=== PATIENT | male | born 1965 | race Caucasian/White ===

== ENCOUNTER 2016-08-25 10:52 | Inpatient (IN) | payer MEDICARE, MEDICAID ==
[~2016-08-25 10:52] MED LIST: ADDERALL XR 3030 M1 PO; ATIVAN1 M2 PO; CELEXA40 M2 PO; CYCLOBENZAPRINE10 MG; CYMBALTA30 M1 PO; EFFEXOR75 MG; FLOMAX0.4 M1 PO; HYDROCODONE/APA1 CAP; IBUPROFEN800 M1 PO; LEVAQUIN500 MG; LEVOTHYROXINE200 MC4 PO; NEURONTIN600 M1 PO; NORCO 7.5/325 T1 TAB; OXYCODONE HCL10 M2 PO; PREDNISONE20 MG; SEROQUEL200 M2 PO; SYNTHROID50 MC1 PO; TESTOSTERO200 MG/1 M PO; TRAZODONE HCL50 M1 PO; TRIAMCINOLONE A15 G; ZANAFLEX4 M2 PO; ZYRTEC10 M7 PO; ZYRTEC10 MG
[2016-08-25] MEDS ORDERED: VENTOLIN HFA18 G2 PO (11:44)
[2016-08-25 14:00] LABS: ABG CO2 ARTERIAL 30 mmol/L (21-27); ARTERIAL BLD GAS O2 SATURATION 88 % (95-98); ARTERIAL PO2 65 mmHg (70-100); BICARBONATE 27 mmol/L (21-28); BLOOD GAS BASE EXCESS -3 mM/L (-/+3)
[2016-08-25 14:04] LABS: ARTERIAL BLOOD GAS PCO2 73 mmHg (32-45)
[2016-08-25 14:56] LABS: INR 1.1 INR (0.9-1.1)
[2016-08-25 14:58] LABS: ABG CO2 ARTERIAL 30 mmol/L (21-27); ARTERIAL BLD GAS O2 SATURATION 93 % (95-98); BICARBONATE 27 mmol/L (21-28); BLOOD GAS BASE EXCESS -7 mM/L (-/+3)
[2016-08-25 14:59] LABS: ARTERIAL PO2 86 mmHg (70-100)
[2016-08-25 15:00] LABS: ARTERIAL BLOOD GAS PCO2 92 mmHg (32-45); PH 7.09 Units (7.35-7.45)
[2016-08-25 15:06] LABS: ALB/GLOB RATIO 0.5 (0.8-2.0); ALBUMIN 2.4 g/dl (3.5-5.0); ALKALINE PHOSPHATASE 114 U/L (33-138); ALT/SGPT 48 U/L (12-78); ANION GAP 12 mmol/L (0-20); AST/SGOT 26 U/L (10-40); BILIRUBIN,TOTAL 0.2 mg/dl (0.0-1.5); BLOOD UREA NITROGEN 17 mg/dl (6-24); CALCIUM 8.2 mg/dl (8.5-10.5); CARBON DIOXIDE-VENOUS 27 mmol/L (22-32); CHLORIDE 105 mmol/l (96-110); CREATININE 1.04 mg/dl (0.60-1.30); GLUCOSE 107 mg/dL (70-110); POTASSIUM 5.2 mmol/L (3.7-5.1); SODIUM 139 mmol/L (135-145); eGFR VALUE FOR BLACK >90 mL/Min
[2016-08-25 15:11] LABS: BASO % 0.1 % (0-2); EOS % 0.2 % (0-7); EOSINOPHIL ABSOLUTE COUNT 0.1 tho/cmm (0.0-0.7); HCT-HEMATOCRIT 45.4 % (36.0-53.5); HGB-HEMOGLOBIN 15.3 gm/dl (13.5-17.0); IMMATURE GRANULOCYTES ABSOLUTE 0.19 tho/cmm (0-0.03); IMMATURE GRANULOCYTES PERCENT 0.7 % (0-0.3); LYMPH % 5.4 % (20-45); LYMPH ABSOLUTE COUNT 1.5 tho/cmm (0.8-4.5); MCH (MEAN CORPUSCULAR HGB) 31.5 pg (28.0-32.0); MCHC MEAN CORPUSCULAR HGB CONC 33.7 % (32.0-36.0); MCV (MEAN CELL VOLUME) 93.6 fl (82.0-96.0); MEAN PLATELET VOLUME 9.2 cmc (9.4-12.4); MONO % 6.7 % (0-12); MONOCYTE ABSOLUTE COUNT 1.9 tho/cmm (0.0-1.2); NEUTROPHIL ABSOLUTE COUNT 24.8 tho/cmm (1.6-8.0); NEUTROPHIL-AUTOMATED 24.8 tho/cmm (1.6-8.0); NEUTROPHILS % 86.9 % (40-80); PLATELET COUNT 401 tho/cmm (150-450); RED BLOOD COUNT 4.85 mil/cmm (4.40-5.70); RED CELL DISTRIBUTION WIDTH 13.9 % (12.4-16.4); WHITE BLOOD COUNT 28.6 tho/cmm (4.0-10.0)
[2016-08-25 15:23] LABS: PROCALCITONIN 3.74 ng/ml (0.05-0.09)
[2016-08-25 16:50] LABS: ABG CO2 ARTERIAL 26 mmol/L (21-27); ARTERIAL BLD GAS O2 SATURATION 95 % (95-98); ARTERIAL BLOOD GAS PCO2 63 mmHg (32-45); ARTERIAL PO2 89 mmHg (70-100); BICARBONATE 24 mmol/L (21-28); BLOOD GAS BASE EXCESS -5 mM/L (-/+3); PH 7.21 Units (7.35-7.45)
--- NOTE | 2016-08-25 20:11 | NUR ---
NOTIFIED DR PASCAL THAT HE WAS CONSULTED ON 386 WHEN HE WAS ON THE FLOOR AFTER SURGER WITH ANOTHER PATIENT AT 1845. DR PASCAL STATED "NO NOT UNTIL TOMORROW"
[2016-08-25 21:31] LABS: ABG CO2 ARTERIAL 26 mmol/L (21-27); ARTERIAL BLD GAS O2 SATURATION 96 % (95-98); ARTERIAL BLOOD GAS PCO2 53 mmHg (32-45); ARTERIAL PO2 83 mmHg (70-100); BICARBONATE 25 mmol/L (21-28); BLOOD GAS BASE EXCESS -2 mM/L (-/+3); PH 7.29 Units (7.35-7.45)
[2016-08-26 05:00] LABS: ABG CO2 ARTERIAL 26 mmol/L (21-27); ARTERIAL BLD GAS O2 SATURATION 95 % (95-98); ARTERIAL BLOOD GAS PCO2 45 mmHg (32-45); ARTERIAL PO2 77 mmHg (70-100); BICARBONATE 25 mmol/L (21-28); BLOOD GAS BASE EXCESS -1 mM/L (-/+3); PH 7.36 Units (7.35-7.45)
[2016-08-26 20:32] LABS: ABG CO2 ARTERIAL 20 mmol/L (21-27); ARTERIAL BLD GAS O2 SATURATION 98 % (95-98); ARTERIAL BLOOD GAS PCO2 47 mmHg (32-45); ARTERIAL PO2 146 mmHg (70-100); BICARBONATE 19 mmol/L (21-28); BLOOD GAS BASE EXCESS -8 mM/L (-/+3); PH 7.22 Units (7.35-7.45)
[2016-08-26 23:22] LABS: ABG CO2 ARTERIAL 24 mmol/L (21-27); ARTERIAL BLD GAS O2 SATURATION 99 % (95-98); ARTERIAL BLOOD GAS PCO2 37 mmHg (32-45); ARTERIAL PO2 167 mmHg (70-100); BICARBONATE 22 mmol/L (21-28); BLOOD GAS BASE EXCESS -2 mM/L (-/+3); PH 7.39 Units (7.35-7.45)
[2016-08-27 05:35] LABS: ABG CO2 ARTERIAL 22 mmol/L (21-27); ARTERIAL BLD GAS O2 SATURATION 97 % (95-98); ARTERIAL BLOOD GAS PCO2 37 mmHg (32-45); BICARBONATE 21 mmol/L (21-28); BLOOD GAS BASE EXCESS -3 mM/L (-/+3); PH 7.38 Units (7.35-7.45)
[2016-08-27 05:36] LABS: ARTERIAL PO2 84 mmHg (70-100)
[2016-08-27 05:56] LABS: BASO % 0.1 % (0-2); EOS % 0.2 % (0-7); HCT-HEMATOCRIT 39.2 % (36.0-53.5); HGB-HEMOGLOBIN 13.2 gm/dl (13.5-17.0); IMMATURE GRANULOCYTES PERCENT 0.5 % (0-0.3); LYMPH % 5.8 % (20-45); LYMPH ABSOLUTE COUNT 1.2 tho/cmm (0.8-4.5); MCH (MEAN CORPUSCULAR HGB) 30.7 pg (28.0-32.0); MCHC MEAN CORPUSCULAR HGB CONC 33.7 % (32.0-36.0); MCV (MEAN CELL VOLUME) 91.2 fl (82.0-96.0); MEAN PLATELET VOLUME 9.2 cmc (9.4-12.4); MONO % 6.4 % (0-12); MONOCYTE ABSOLUTE COUNT 1.3 tho/cmm (0.0-1.2); NEUTROPHIL ABSOLUTE COUNT 17.3 tho/cmm (1.6-8.0); NEUTROPHIL-AUTOMATED 17.3 tho/cmm (1.6-8.0); PLATELET COUNT 348 tho/cmm (150-450); RED CELL DISTRIBUTION WIDTH 14.2 % (12.4-16.4); WHITE BLOOD COUNT 19.9 tho/cmm (4.0-10.0)
[2016-08-27 06:11] LABS: ALB/GLOB RATIO 0.4 (0.8-2.0); ALBUMIN 1.8 g/dl (3.5-5.0); ALKALINE PHOSPHATASE 85 U/L (33-138); ALT/SGPT 25 U/L (12-78); BILIRUBIN,TOTAL 0.3 mg/dl (0.0-1.5); BLOOD UREA NITROGEN 16 mg/dl (6-24); CALCIUM 7.6 mg/dl (8.5-10.5); CARBON DIOXIDE-VENOUS 24 mmol/L (22-32); CHLORIDE 107 mmol/l (96-110); CREATININE 0.72 mg/dl (0.60-1.30); GLUCOSE 158 mg/dL (70-110); SODIUM 140 mmol/L (135-145); eGFR VALUE FOR BLACK >90 mL/Min
[2016-08-27 06:14] LABS: ANION GAP 13 mmol/L (0-20); AST/SGOT 18 U/L (10-40)
[2016-08-27 06:15] LABS: POTASSIUM 4.3 mmol/L (3.7-5.1)
[2016-08-28 05:06] LABS: BASO % 0.2 % (0-2); EOS % 2.4 % (0-7); EOSINOPHIL ABSOLUTE COUNT 0.3 tho/cmm (0.0-0.7); HCT-HEMATOCRIT 37.7 % (36.0-53.5); HGB-HEMOGLOBIN 12.8 gm/dl (13.5-17.0); IMMATURE GRANULOCYTES ABSOLUTE 0.27 tho/cmm (0-0.03); IMMATURE GRANULOCYTES PERCENT 2.1 % (0-0.3); LYMPH % 11.8 % (20-45); LYMPH ABSOLUTE COUNT 1.5 tho/cmm (0.8-4.5); MCH (MEAN CORPUSCULAR HGB) 30.9 pg (28.0-32.0); MCV (MEAN CELL VOLUME) 91.1 fl (82.0-96.0); MEAN PLATELET VOLUME 9.4 cmc (9.4-12.4); MONO % 9.1 % (0-12); MONOCYTE ABSOLUTE COUNT 1.2 tho/cmm (0.0-1.2); NEUTROPHIL ABSOLUTE COUNT 9.5 tho/cmm (1.6-8.0); NEUTROPHIL-AUTOMATED 9.5 tho/cmm (1.6-8.0); NEUTROPHILS % 74.4 % (40-80); PLATELET COUNT 347 tho/cmm (150-450); RED BLOOD COUNT 4.14 mil/cmm (4.40-5.70); RED CELL DISTRIBUTION WIDTH 14.3 % (12.4-16.4); WHITE BLOOD COUNT 12.8 tho/cmm (4.0-10.0)
[2016-08-28 05:16] LABS: ALB/GLOB RATIO 0.4 (0.8-2.0); ALBUMIN 1.6 g/dl (3.5-5.0); ALKALINE PHOSPHATASE 100 U/L (33-138); ALT/SGPT 28 U/L (12-78); ANION GAP 13 mmol/L (0-20); AST/SGOT 39 U/L (10-40); BILIRUBIN,TOTAL 0.3 mg/dl (0.0-1.5); BLOOD UREA NITROGEN 17 mg/dl (6-24); CALCIUM 7.6 mg/dl (8.5-10.5); CARBON DIOXIDE-VENOUS 24 mmol/L (22-32); CHLORIDE 107 mmol/l (96-110); CREATININE 0.72 mg/dl (0.60-1.30); GLUCOSE 129 mg/dL (70-110); MAGNESIUM 2.3 mg/dl (1.8-2.6); POTASSIUM 3.5 mmol/L (3.7-5.1); SODIUM 140 mmol/L (135-145); eGFR VALUE FOR BLACK >90 mL/Min
[2016-08-28 16:21] LABS: ABG CO2 ARTERIAL 25 mmol/L (21-27); ARTERIAL BLD GAS O2 SATURATION 96 % (95-98); ARTERIAL BLOOD GAS PCO2 36 mmHg (32-45); ARTERIAL PO2 84 mmHg (70-100); BICARBONATE 24 mmol/L (21-28); BLOOD GAS BASE EXCESS 1 mM/L (-/+3); PH 7.44 Units (7.35-7.45)
[2016-08-29 04:17] LABS: ABG CO2 ARTERIAL 25 mmol/L (21-27); ARTERIAL BLD GAS O2 SATURATION 95 % (95-98); ARTERIAL BLOOD GAS PCO2 36 mmHg (32-45); BICARBONATE 23 mmol/L (21-28); BLOOD GAS BASE EXCESS 0 mM/L (-/+3); PH 7.43 Units (7.35-7.45)
[2016-08-29 04:18] LABS: ARTERIAL PO2 73 mmHg (70-100)
[2016-08-29 04:39] LABS: BASO % 0.4 % (0-2); BASO ABSOLUTE COUNT 0.1 tho/cmm (0.0-0.2); EOS % 1.7 % (0-7); EOSINOPHIL ABSOLUTE COUNT 0.2 tho/cmm (0.0-0.7); HCT-HEMATOCRIT 38.6 % (36.0-53.5); HGB-HEMOGLOBIN 13.1 gm/dl (13.5-17.0); IMMATURE GRANULOCYTES ABSOLUTE 0.57 tho/cmm (0-0.03); IMMATURE GRANULOCYTES PERCENT 4.3 % (0-0.3); LYMPH % 9.6 % (20-45); LYMPH ABSOLUTE COUNT 1.3 tho/cmm (0.8-4.5); MCHC MEAN CORPUSCULAR HGB CONC 33.9 % (32.0-36.0); MCV (MEAN CELL VOLUME) 91.3 fl (82.0-96.0); MEAN PLATELET VOLUME 9.5 cmc (9.4-12.4); MONOCYTE ABSOLUTE COUNT 1.3 tho/cmm (0.0-1.2); NEUTROPHIL ABSOLUTE COUNT 9.9 tho/cmm (1.6-8.0); NEUTROPHIL-AUTOMATED 9.9 tho/cmm (1.6-8.0); PLATELET COUNT 331 tho/cmm (150-450); RED BLOOD COUNT 4.23 mil/cmm (4.40-5.70); RED CELL DISTRIBUTION WIDTH 14.2 % (12.4-16.4); WHITE BLOOD COUNT 13.4 tho/cmm (4.0-10.0)
[2016-08-29 05:12] LABS: ALB/GLOB RATIO 0.3 (0.8-2.0); ALBUMIN 1.4 g/dl (3.5-5.0); ALKALINE PHOSPHATASE 78 U/L (33-138); ALT/SGPT 30 U/L (12-78); ANION GAP 12 mmol/L (0-20); AST/SGOT 38 U/L (10-40); BILIRUBIN,TOTAL 0.4 mg/dl (0.0-1.5); BLOOD UREA NITROGEN 14 mg/dl (6-24); CALCIUM 7.4 mg/dl (8.5-10.5); CARBON DIOXIDE-VENOUS 24 mmol/L (22-32); CHLORIDE 105 mmol/l (96-110); GLUCOSE 106 mg/dL (70-110); MAGNESIUM 1.9 mg/dl (1.8-2.6); PHOSPHOROUS 2.2 mg/dl (2.5-4.9); POTASSIUM 3.7 mmol/L (3.7-5.1); SODIUM 137 mmol/L (135-145); eGFR VALUE FOR BLACK >90 mL/Min
[2016-08-30 04:54] LABS: ALB/GLOB RATIO 0.4 (0.8-2.0); ALBUMIN 1.7 g/dl (3.5-5.0); ALKALINE PHOSPHATASE 81 U/L (33-138); ALT/SGPT 31 U/L (12-78); ANION GAP 10 mmol/L (0-20); AST/SGOT 34 U/L (10-40); BILIRUBIN,TOTAL 0.4 mg/dl (0.0-1.5); BLOOD UREA NITROGEN 10 mg/dl (6-24); CALCIUM 7.8 mg/dl (8.5-10.5); CARBON DIOXIDE-VENOUS 28 mmol/L (22-32); CHLORIDE 103 mmol/l (96-110); CREATININE 0.53 mg/dl (0.60-1.30); GLUCOSE 101 mg/dL (70-110); POTASSIUM 3.3 mmol/L (3.7-5.1); SODIUM 138 mmol/L (135-145); eGFR VALUE FOR BLACK >90 mL/Min
[2016-08-30 04:56] LABS: ABG CO2 ARTERIAL 26 mmol/L (21-27); ARTERIAL BLD GAS O2 SATURATION 95 % (95-98); ARTERIAL BLOOD GAS PCO2 36 mmHg (32-45); ARTERIAL PO2 76 mmHg (70-100); BICARBONATE 25 mmol/L (21-28); BLOOD GAS BASE EXCESS 2 mM/L (-/+3); PH 7.45 Units (7.35-7.45)
[2016-08-30 05:03] LABS: HCT-HEMATOCRIT 42.5 % (36.0-53.5); HGB-HEMOGLOBIN 14.2 gm/dl (13.5-17.0); MCH (MEAN CORPUSCULAR HGB) 30.3 pg (28.0-32.0); MCHC MEAN CORPUSCULAR HGB CONC 33.4 % (32.0-36.0); MCV (MEAN CELL VOLUME) 90.6 fl (82.0-96.0); MEAN PLATELET VOLUME 9.5 cmc (9.4-12.4); NEUTROPHIL-AUTOMATED 9.7 tho/cmm (1.6-8.0); PLATELET COUNT 408 tho/cmm (150-450); RED BLOOD COUNT 4.69 mil/cmm (4.40-5.70); RED CELL DISTRIBUTION WIDTH 14.1 % (12.4-16.4)
[2016-08-30 06:06] LABS: PROCALCITONIN 0.55 ng/ml (0.05-0.09)
[2016-08-30 07:52] LABS: BAND % 19 % (0-20); BAND ABSOLUTE COUNT 2.7 tho/cmm (0-2.0); BASOPHIL % 1 % (0-2); BASOPHIL ABSOLUTE COUNT 0.1 tho/cmm (0.0-0.2); EOSINOPHIL % 1 % (0-7)
[2016-09-01 13:57] LABS: BASO % 0.5 % (0-2); BASO ABSOLUTE COUNT 0.1 tho/cmm (0.0-0.2); EOS % 1.8 % (0-7); EOSINOPHIL ABSOLUTE COUNT 0.3 tho/cmm (0.0-0.7); HCT-HEMATOCRIT 42.7 % (36.0-53.5); HGB-HEMOGLOBIN 14.8 gm/dl (13.5-17.0); IMMATURE GRANULOCYTES ABSOLUTE 0.59 tho/cmm (0-0.03); IMMATURE GRANULOCYTES PERCENT 3.6 % (0-0.3); LYMPH % 11.2 % (20-45); LYMPH ABSOLUTE COUNT 1.8 tho/cmm (0.8-4.5); MCH (MEAN CORPUSCULAR HGB) 31.1 pg (28.0-32.0); MCHC MEAN CORPUSCULAR HGB CONC 34.7 % (32.0-36.0); MCV (MEAN CELL VOLUME) 89.7 fl (82.0-96.0); MEAN PLATELET VOLUME 9.1 cmc (9.4-12.4); MONO % 5.6 % (0-12); MONOCYTE ABSOLUTE COUNT 0.9 tho/cmm (0.0-1.2); NEUTROPHIL ABSOLUTE COUNT 12.7 tho/cmm (1.6-8.0); NEUTROPHIL-AUTOMATED 12.7 tho/cmm (1.6-8.0); NEUTROPHILS % 77.3 % (40-80); PLATELET COUNT 458 tho/cmm (150-450); RED BLOOD COUNT 4.76 mil/cmm (4.40-5.70); RED CELL DISTRIBUTION WIDTH 13.9 % (12.4-16.4); WHITE BLOOD COUNT 16.4 tho/cmm (4.0-10.0)
[2016-09-01 14:06] LABS: ANION GAP 14 mmol/L (0-20); BLOOD UREA NITROGEN 9 mg/dl (6-24); CARBON DIOXIDE-VENOUS 25 mmol/L (22-32); CHLORIDE 104 mmol/l (96-110); CREATININE 0.78 mg/dl (0.60-1.30); GLUCOSE 137 mg/dL (70-110); POTASSIUM 3.6 mmol/L (3.7-5.1); SODIUM 139 mmol/L (135-145); eGFR VALUE FOR BLACK >90 mL/Min
[2016-09-02] MEDS ORDERED: CLEOCIN HCL300 M1 PO (15:07)
[2016-09-02] MEDS ORDERED: HYDROCODON-ACE1 EA16 PO (15:11)
[2016-11-16] MEDS ORDERED: CYMBALTA60 M1 PO (11:00)
[2016-11-16] MEDS ORDERED: AMITRIPTYLINE H50 M1 PO (11:06)
[2016-11-16] MEDS ORDERED: PROAIR HFA8.5 GM INH (11:06)
[2016-11-16] MEDS ORDERED: OXYCONTIN10 M2 PO (11:06)
[2016-11-16] MEDS ORDERED: HYDROCODON-ACE1 EA16 PO (11:06)
[2016-11-16] MEDS ORDERED: ATIVAN1 M2 PO (11:07)
[2016-11-25] MEDS ORDERED: CEFTRIAXON2000 MG/VI IV (08:39)
[2016-11-25] MEDS ORDERED: ATIVAN2 MG/1 ML IV (08:47)
[2016-11-25] MEDS ORDERED: DULERA 200 MCG/13 G1 INH (08:48)
[2016-11-25] MEDS ORDERED: COMBIVENT RESPIM4 G1 INH (08:48)
[2016-11-25] MEDS ORDERED: ZANAFLEX4 M2 PO (08:48)
[2016-11-25] MEDS ORDERED: NICODERM CQ1 EAC2 TD (08:51)
[2016-11-25] MEDS ORDERED: OXYCONTIN10 M2 PO (08:52)
[2016-11-25] MEDS ORDERED: PERCOCET 5-3251 EACH PO (08:53)
[2016-11-25] MEDS ORDERED: TYLENOL325 M2 PO (08:54)
[2016-11-25] MEDS ORDERED: NEURONTIN400 M1 PO (08:55)
[2016-11-25] MEDS ORDERED: MUCINEX600 M1 PO (08:56)
[2016-11-25] MEDS ORDERED: SYNTHROID25 MC1 PO (08:59)
[2016-11-25] MEDS ORDERED: IRON325 M3 PO (09:02)
== END 2016-09-02 15:50 | disposition home health service (06) | DRG 853 ==
LOC: 5WD 10:52 → PCUB 11:18 → CCU 16:09 → ORW 08-26 18:34 → CCU 08-26 20:02 → PCUB 08-30 14:47
PROVIDERS: Family Medicine; Internal Medicine; Internal Medicine Critical Care Medicine; ADMIT Family Medicine
PROC: 02HV33Z Insertion of Infusion Device into Superior Vena Cava, Percutaneous Approach (ICD-10-PCS; 2016-08-25)
PROC: 5A09357 Assistance with Respiratory Ventilation, Less than 24 Consecutive Hours, Continuous Positive Airway Pressure (ICD-10-PCS; 2016-08-25)
PROC: 0BDN4ZZ Extraction of Right Pleura, Percutaneous Endoscopic Approach (ICD-10-PCS; principal; 2016-08-27)
PROC: 0BH17EZ Insertion of Endotracheal Airway into Trachea, Via Natural or Artificial Opening (ICD-10-PCS; 2016-08-27)
PROC: 5A1945Z Respiratory Ventilation, 24-96 Consecutive Hours (ICD-10-PCS; 2016-08-27)
DX: A41.9 Sepsis, unspecified organism (principal); J18.9 Pneumonia, unspecified organism; J96.01 Acute respiratory failure with hypoxia; J86.9 Pyothorax without fistula; G93.40 Encephalopathy, unspecified; J96.22 Acute and chronic respiratory failure with hypercapnia; F11.20 Opioid dependence, uncomplicated; R04.2 Hemoptysis; F17.213 Nicotine dependence, cigarettes, with withdrawal; F90.9 Attention-deficit hyperactivity disorder, unspecified type; N40.0 Benign prostatic hyperplasia without lower urinary tract symptoms; N52.9 Male erectile dysfunction, unspecified; G47.33 Obstructive sleep apnea (adult) (pediatric); E03.9 Hypothyroidism, unspecified; G89.29 Other chronic pain; M21.379 Foot drop, unspecified foot; Z88.1 Allergy status to other antibiotic agents; Z88.0 Allergy status to penicillin; Z88.2 Allergy status to sulfonamides; Z88.8 Allergy status to other drugs, medicaments and biological substances; F17.210 Nicotine dependence, cigarettes, uncomplicated; F32.9 Major depressive disorder, single episode, unspecified; F41.9 Anxiety disorder, unspecified; R65.20 Severe sepsis without septic shock; F12.90 Cannabis use, unspecified, uncomplicated; E29.1 Testicular hypofunction; E66.9 Obesity, unspecified; Z86.14 Personal history of Methicillin resistant Staphylococcus aureus infection; Z68.35 Body mass index [BMI] 35.0-35.9, adult; D64.9 Anemia, unspecified; E87.8 Other disorders of electrolyte and fluid balance, not elsewhere classified; Z53.9 Procedure and treatment not carried out, unspecified reason
CPT/HCPCS: C1751; C9113; J1650; J1940; J1956; J2250; J2704; J3010; J3370; J7030; J7050; P9045

== ENCOUNTER 2016-09-12 17:31 | Inpatient (IN) | payer MEDICARE, MEDICAID ==
[~2016-09-12 17:31] MED LIST changes: +CLEOCIN HCL300 M1 PO; +HYDROCODON-ACE1 EA16 PO; +VENTOLIN HFA18 G2 PO
[2016-09-12 17:57] LABS: BASO % 0.1 % (0-2); EOS % 1.2 % (0-7); EOSINOPHIL ABSOLUTE COUNT 0.2 tho/cmm (0.0-0.7); HCT-HEMATOCRIT 35.1 % (36.0-53.5); HGB-HEMOGLOBIN 11.6 gm/dl (13.5-17.0); IMMATURE GRANULOCYTES ABSOLUTE 0.18 tho/cmm (0-0.03); IMMATURE GRANULOCYTES PERCENT 1.1 % (0-0.3); LYMPH % 7.9 % (20-45); LYMPH ABSOLUTE COUNT 1.3 tho/cmm (0.8-4.5); MCH (MEAN CORPUSCULAR HGB) 29.4 pg (28.0-32.0); MCV (MEAN CELL VOLUME) 89.1 fl (82.0-96.0); MEAN PLATELET VOLUME 9.1 cmc (9.4-12.4); MONO % 5.5 % (0-12); MONOCYTE ABSOLUTE COUNT 0.9 tho/cmm (0.0-1.2); NEUTROPHIL ABSOLUTE COUNT 13.9 tho/cmm (1.6-8.0); NEUTROPHIL-AUTOMATED 13.9 tho/cmm (1.6-8.0); NEUTROPHILS % 84.2 % (40-80); PLATELET COUNT 427 tho/cmm (150-450); RED BLOOD COUNT 3.94 mil/cmm (4.40-5.70); RED CELL DISTRIBUTION WIDTH 14.7 % (12.4-16.4); WHITE BLOOD COUNT 16.5 tho/cmm (4.0-10.0)
[2016-09-12 18:01] LABS: INR 1.1 INR (0.9-1.1)
[2016-09-12 18:13] LABS: ALB/GLOB RATIO 0.3 (0.8-2.0); ALBUMIN 1.7 g/dl (3.5-5.0); ALKALINE PHOSPHATASE 125 U/L (33-138); ALT/SGPT 26 U/L (12-78); ANION GAP 12 mmol/L (0-20); AST/SGOT 27 U/L (10-40); BILIRUBIN,TOTAL 0.2 mg/dl (0.0-1.5); BLOOD UREA NITROGEN 11 mg/dl (6-24); CALCIUM 8.6 mg/dl (8.5-10.5); CARBON DIOXIDE-VENOUS 24 mmol/L (22-32); CHLORIDE 101 mmol/l (96-110); GLUCOSE 149 mg/dL (70-110); POTASSIUM 4.1 mmol/L (3.7-5.1); SODIUM 133 mmol/L (135-145); eGFR VALUE FOR BLACK >90 mL/Min
[2016-09-12 18:36] LABS: URINE BILIRUBIN NEGATIVE (NEG); URINE BLOOD SMALL (NEG); URINE GLUCOSE (UA) NEGATIVE (NEG); URINE KETONE NEGATIVE (NEG); URINE LEUKOCYTE ESTERASE POSITIVE (NEG); URINE NITRITE NEGATIVE (NEG); URINE PROTEIN MODERATE (NEG); URINE SPECIFIC GRAVITY 1.015 (1.003-1.030)
[2016-09-12 18:38] LABS: URINE APPEARANCE CLEAR; URINE COLOR DARK YELLOW
[2016-09-12 18:42] LABS: URINE MUCUS 1+
[2016-09-12 18:43] LABS: URINE RBC 0 /[HPF] (0-5); URINE WBC 0-2 /[HPF] (0-5)
[2016-09-12 20:05] LABS: ABG CO2 ARTERIAL 26 mmol/L (21-27); ARTERIAL BLD GAS O2 SATURATION 92 % (95-98); ARTERIAL BLOOD GAS PCO2 44 mmHg (32-45); ARTERIAL PO2 72 mmHg (70-100); BICARBONATE 24 mmol/L (21-28); BLOOD GAS BASE EXCESS -1 mM/L (-/+3); PH 7.36 Units (7.35-7.45)
[2016-09-12 21:36] LABS: ALCOHOL (ETOH) <10 mg/dl (<10); MAGNESIUM 1.7 mg/dl (1.8-2.6); PHOSPHOROUS 3.6 mg/dl (2.5-4.9)
[2016-09-12 21:40] LABS: TSH-THYROID STIMULATING HORM. 3.22 uIU/ml (0.40-3.80)
[2016-09-13] LABS: PROCALCITONIN 5.41 ng/ml (0.05-0.09)
[2016-09-13 03:27] LABS: ABG CO2 ARTERIAL 25 mmol/L (21-27); ARTERIAL BLD GAS O2 SATURATION 94 % (95-98); ARTERIAL BLOOD GAS PCO2 40 mmHg (32-45); ARTERIAL PO2 73 mmHg (70-100); BICARBONATE 24 mmol/L (21-28); BLOOD GAS BASE EXCESS -1 mM/L (-/+3); PH 7.39 Units (7.35-7.45)
[2016-09-13 05:25] LABS: BASO % 0.1 % (0-2); EOS % 1.1 % (0-7); EOSINOPHIL ABSOLUTE COUNT 0.2 tho/cmm (0.0-0.7); HCT-HEMATOCRIT 34.7 % (36.0-53.5); HGB-HEMOGLOBIN 11.4 gm/dl (13.5-17.0); IMMATURE GRANULOCYTES PERCENT 1.2 % (0-0.3); LYMPH % 9.6 % (20-45); LYMPH ABSOLUTE COUNT 1.7 tho/cmm (0.8-4.5); MCH (MEAN CORPUSCULAR HGB) 29.3 pg (28.0-32.0); MCHC MEAN CORPUSCULAR HGB CONC 32.9 % (32.0-36.0); MCV (MEAN CELL VOLUME) 89.2 fl (82.0-96.0); MEAN PLATELET VOLUME 9.1 cmc (9.4-12.4); MONO % 5.5 % (0-12); NEUTROPHIL ABSOLUTE COUNT 14.3 tho/cmm (1.6-8.0); NEUTROPHIL-AUTOMATED 14.3 tho/cmm (1.6-8.0); NEUTROPHILS % 82.5 % (40-80); PLATELET COUNT 394 tho/cmm (150-450); RED BLOOD COUNT 3.89 mil/cmm (4.40-5.70); RED CELL DISTRIBUTION WIDTH 15.1 % (12.4-16.4); WHITE BLOOD COUNT 17.4 tho/cmm (4.0-10.0)
[2016-09-13 05:41] LABS: ANION GAP 12 mmol/L (0-20); BLOOD UREA NITROGEN 7 mg/dl (6-24); CALCIUM 7.8 mg/dl (8.5-10.5); CARBON DIOXIDE-VENOUS 25 mmol/L (22-32); CHLORIDE 100 mmol/l (96-110); CREATININE 0.71 mg/dl (0.60-1.30); GLUCOSE 110 mg/dL (70-110); POTASSIUM 3.9 mmol/L (3.7-5.1); SODIUM 133 mmol/L (135-145); eGFR VALUE FOR BLACK >90 mL/Min
[2016-09-13 05:44] LABS: C-REACTIVE PROTEIN 27.7 mg/dl (0-0.9)
[2016-09-13] MEDS ORDERED: CYMBALTA30 M1 PO (14:00)
[2016-09-13] MEDS ORDERED: OXYCODONE HCL10 M2 PO (14:04)
[2016-09-13] MEDS ORDERED: NEURONTIN600 M1 PO (14:05)
[2016-09-13] MEDS ORDERED: IBUPROFEN800 M1 PO (14:05)
[2016-09-13] MEDS ORDERED: OXYCONTIN40 M2 PO (14:05)
[2016-09-14 15:24] LABS: HCT-HEMATOCRIT 35.2 % (36.0-53.5); HGB-HEMOGLOBIN 11.6 gm/dl (13.5-17.0); MCV (MEAN CELL VOLUME) 89.1 fl (82.0-96.0); RED CELL DISTRIBUTION WIDTH 15.1 % (12.4-16.4)
[2016-09-15 05:11] LABS: BASO % 0.3 % (0-2); EOS % 1.1 % (0-7); EOSINOPHIL ABSOLUTE COUNT 0.1 tho/cmm (0.0-0.7); HCT-HEMATOCRIT 35.3 % (36.0-53.5); HGB-HEMOGLOBIN 11.5 gm/dl (13.5-17.0); IMMATURE GRANULOCYTES PERCENT 3.5 % (0-0.3); LYMPH % 13.1 % (20-45); LYMPH ABSOLUTE COUNT 1.5 tho/cmm (0.8-4.5); MCH (MEAN CORPUSCULAR HGB) 28.9 pg (28.0-32.0); MCHC MEAN CORPUSCULAR HGB CONC 32.6 % (32.0-36.0); MCV (MEAN CELL VOLUME) 88.7 fl (82.0-96.0); MONO % 7.1 % (0-12); MONOCYTE ABSOLUTE COUNT 0.8 tho/cmm (0.0-1.2); NEUTROPHIL ABSOLUTE COUNT 8.5 tho/cmm (1.6-8.0); NEUTROPHIL-AUTOMATED 8.5 tho/cmm (1.6-8.0); NEUTROPHILS % 74.9 % (40-80); PLATELET COUNT 360 tho/cmm (150-450); RED BLOOD COUNT 3.98 mil/cmm (4.40-5.70); RED CELL DISTRIBUTION WIDTH 15.1 % (12.4-16.4); WHITE BLOOD COUNT 11.4 tho/cmm (4.0-10.0)
[2016-09-15 05:22] LABS: ANION GAP 9 mmol/L (0-20); BLOOD UREA NITROGEN 6 mg/dl (6-24); CALCIUM 7.8 mg/dl (8.5-10.5); CARBON DIOXIDE-VENOUS 28 mmol/L (22-32); CHLORIDE 102 mmol/l (96-110); CREATININE 0.59 mg/dl (0.60-1.30); GLUCOSE 101 mg/dL (70-110); POTASSIUM 4.1 mmol/L (3.7-5.1); SODIUM 135 mmol/L (135-145); eGFR VALUE FOR BLACK >90 mL/Min
[2016-09-16 05:51] LABS: HCT-HEMATOCRIT 33.6 % (36.0-53.5); HGB-HEMOGLOBIN 11.1 gm/dl (13.5-17.0); MCH (MEAN CORPUSCULAR HGB) 28.9 pg (28.0-32.0); MCV (MEAN CELL VOLUME) 87.5 fl (82.0-96.0); NEUTROPHIL-AUTOMATED 7.8 tho/cmm (1.6-8.0); PLATELET COUNT 352 tho/cmm (150-450); RED BLOOD COUNT 3.84 mil/cmm (4.40-5.70); RED CELL DISTRIBUTION WIDTH 15.1 % (12.4-16.4); WHITE BLOOD COUNT 11.3 tho/cmm (4.0-10.0)
[2016-09-16 07:35] LABS: BAND % 26 % (0-20); BAND ABSOLUTE COUNT 2.9 tho/cmm (0-2.0); EOSINOPHIL % 1 % (0-7); WBC MORPHOLOGY TOXIC GRANULATION
[2016-09-17 08:13] LABS: HCT-HEMATOCRIT 34.6 % (36.0-53.5); HGB-HEMOGLOBIN 11.3 gm/dl (13.5-17.0); MCH (MEAN CORPUSCULAR HGB) 28.8 pg (28.0-32.0); MCHC MEAN CORPUSCULAR HGB CONC 32.7 % (32.0-36.0); PLATELET COUNT 380 tho/cmm (150-450); RED BLOOD COUNT 3.93 mil/cmm (4.40-5.70); WHITE BLOOD COUNT 11.1 tho/cmm (4.0-10.0)
[2016-09-17 08:24] LABS: ALBUMIN 1.4 g/dl (3.5-5.0); ANION GAP 11 mmol/L (0-20); BLOOD UREA NITROGEN 8 mg/dl (6-24); C-REACTIVE PROTEIN 7.7 mg/dl (0-0.9); CALCIUM 7.6 mg/dl (8.5-10.5); CARBON DIOXIDE-VENOUS 28 mmol/L (22-32); CHLORIDE 105 mmol/l (96-110); CREATININE 0.58 mg/dl (0.60-1.30); GLUCOSE 76 mg/dL (70-110); PHOSPHOROUS 3.3 mg/dl (2.5-4.9); POTASSIUM 4.1 mmol/L (3.7-5.1); SODIUM 140 mmol/L (135-145); eGFR VALUE FOR BLACK >90 mL/Min
[2016-09-17 09:02] LABS: BAND % 23 % (0-20); BAND ABSOLUTE COUNT 2.6 tho/cmm (0-2.0); EOSINOPHIL % 4 % (0-7)
[2016-09-17 09:03] LABS: WBC MORPHOLOGY TOXIC GRANULATION
[2016-09-18 06:10] LABS: BASO % 0.5 % (0-2); BASO ABSOLUTE COUNT 0.1 tho/cmm (0.0-0.2); EOS % 2.7 % (0-7); EOSINOPHIL ABSOLUTE COUNT 0.4 tho/cmm (0.0-0.7); HCT-HEMATOCRIT 38.4 % (36.0-53.5); HGB-HEMOGLOBIN 12.9 gm/dl (13.5-17.0); IMMATURE GRANULOCYTES PERCENT 9.1 % (0-0.3); LYMPH % 17.6 % (20-45); LYMPH ABSOLUTE COUNT 2.7 tho/cmm (0.8-4.5); MCH (MEAN CORPUSCULAR HGB) 29.6 pg (28.0-32.0); MCHC MEAN CORPUSCULAR HGB CONC 33.6 % (32.0-36.0); MCV (MEAN CELL VOLUME) 88.1 fl (82.0-96.0); MEAN PLATELET VOLUME 8.5 cmc (9.4-12.4); MONOCYTE ABSOLUTE COUNT 0.8 tho/cmm (0.0-1.2); NEUTROPHIL ABSOLUTE COUNT 10.1 tho/cmm (1.6-8.0); NEUTROPHIL-AUTOMATED 10.1 tho/cmm (1.6-8.0); NEUTROPHILS % 65.1 % (40-80); PLATELET COUNT 379 tho/cmm (150-450); RED BLOOD COUNT 4.36 mil/cmm (4.40-5.70); RED CELL DISTRIBUTION WIDTH 15.2 % (12.4-16.4); WHITE BLOOD COUNT 15.4 tho/cmm (4.0-10.0)
[2016-09-18 06:22] LABS: ALBUMIN 1.7 g/dl (3.5-5.0); ANION GAP 8 mmol/L (0-20); BLOOD UREA NITROGEN 7 mg/dl (6-24); C-REACTIVE PROTEIN 7.8 mg/dl (0-0.9); CALCIUM 8.1 mg/dl (8.5-10.5); CARBON DIOXIDE-VENOUS 28 mmol/L (22-32); CHLORIDE 103 mmol/l (96-110); CREATININE 0.73 mg/dl (0.60-1.30); GLUCOSE 101 mg/dL (70-110); PHOSPHOROUS 2.9 mg/dl (2.5-4.9); POTASSIUM 4.4 mmol/L (3.7-5.1); SODIUM 135 mmol/L (135-145); eGFR VALUE FOR BLACK >90 mL/Min
[2016-09-18 06:55] LABS: PROCALCITONIN 0.29 ng/ml (0.05-0.09)
[2016-09-19 05:43] LABS: BASO % 0.5 % (0-2); BASO ABSOLUTE COUNT 0.1 tho/cmm (0.0-0.2); EOS % 2.6 % (0-7); EOSINOPHIL ABSOLUTE COUNT 0.4 tho/cmm (0.0-0.7); HGB-HEMOGLOBIN 11.9 gm/dl (13.5-17.0); LYMPH % 16.5 % (20-45); LYMPH ABSOLUTE COUNT 2.5 tho/cmm (0.8-4.5); MCH (MEAN CORPUSCULAR HGB) 28.8 pg (28.0-32.0); MCHC MEAN CORPUSCULAR HGB CONC 32.2 % (32.0-36.0); MCV (MEAN CELL VOLUME) 89.6 fl (82.0-96.0); MEAN PLATELET VOLUME 8.5 cmc (9.4-12.4); MONO % 6.1 % (0-12); MONOCYTE ABSOLUTE COUNT 0.9 tho/cmm (0.0-1.2); NEUTROPHIL ABSOLUTE COUNT 11.2 tho/cmm (1.6-8.0); NEUTROPHIL-AUTOMATED 11.2 tho/cmm (1.6-8.0); NEUTROPHILS % 74.3 % (40-80); PLATELET COUNT 423 tho/cmm (150-450); RED BLOOD COUNT 4.13 mil/cmm (4.40-5.70); RED CELL DISTRIBUTION WIDTH 15.2 % (12.4-16.4); WHITE BLOOD COUNT 15.1 tho/cmm (4.0-10.0)
[2016-09-19 05:53] LABS: ALBUMIN 1.7 g/dl (3.5-5.0); ANION GAP 9 mmol/L (0-20); BLOOD UREA NITROGEN 9 mg/dl (6-24); C-REACTIVE PROTEIN 6.4 mg/dl (0-0.9); CARBON DIOXIDE-VENOUS 28 mmol/L (22-32); CHLORIDE 103 mmol/l (96-110); CREATININE 0.68 mg/dl (0.60-1.30); GLUCOSE 108 mg/dL (70-110); PHOSPHOROUS 3.4 mg/dl (2.5-4.9); POTASSIUM 4.1 mmol/L (3.7-5.1); SODIUM 136 mmol/L (135-145); eGFR VALUE FOR BLACK >90 mL/Min
[2016-09-19 06:34] LABS: PROCALCITONIN 0.26 ng/ml (0.05-0.09)
[2016-09-20 05:29] LABS: BASO % 0.3 % (0-2); BASO ABSOLUTE COUNT 0.1 tho/cmm (0.0-0.2); EOSINOPHIL ABSOLUTE COUNT 0.3 tho/cmm (0.0-0.7); HCT-HEMATOCRIT 35.1 % (36.0-53.5); HGB-HEMOGLOBIN 11.5 gm/dl (13.5-17.0); IMMATURE GRANULOCYTES ABSOLUTE 0.77 tho/cmm (0-0.03); IMMATURE GRANULOCYTES PERCENT 4.6 % (0-0.3); LYMPH % 14.9 % (20-45); LYMPH ABSOLUTE COUNT 2.5 tho/cmm (0.8-4.5); MCHC MEAN CORPUSCULAR HGB CONC 32.8 % (32.0-36.0); MCV (MEAN CELL VOLUME) 88.6 fl (82.0-96.0); MEAN PLATELET VOLUME 8.4 cmc (9.4-12.4); MONO % 5.9 % (0-12); NEUTROPHIL ABSOLUTE COUNT 12.1 tho/cmm (1.6-8.0); NEUTROPHIL-AUTOMATED 12.1 tho/cmm (1.6-8.0); NEUTROPHILS % 72.3 % (40-80); PLATELET COUNT 342 tho/cmm (150-450); RED BLOOD COUNT 3.96 mil/cmm (4.40-5.70); RED CELL DISTRIBUTION WIDTH 15.5 % (12.4-16.4); WHITE BLOOD COUNT 16.7 tho/cmm (4.0-10.0)
[2016-09-21 04:27] LABS: BASO % 0.3 % (0-2); BASO ABSOLUTE COUNT 0.1 tho/cmm (0.0-0.2); EOS % 1.8 % (0-7); EOSINOPHIL ABSOLUTE COUNT 0.3 tho/cmm (0.0-0.7); HCT-HEMATOCRIT 36.6 % (36.0-53.5); HGB-HEMOGLOBIN 12.1 gm/dl (13.5-17.0); IMMATURE GRANULOCYTES ABSOLUTE 0.58 tho/cmm (0-0.03); IMMATURE GRANULOCYTES PERCENT 3.7 % (0-0.3); LYMPH % 19.1 % (20-45); MCH (MEAN CORPUSCULAR HGB) 29.2 pg (28.0-32.0); MCHC MEAN CORPUSCULAR HGB CONC 33.1 % (32.0-36.0); MCV (MEAN CELL VOLUME) 88.2 fl (82.0-96.0); MEAN PLATELET VOLUME 8.3 cmc (9.4-12.4); MONO % 6.5 % (0-12); NEUTROPHIL ABSOLUTE COUNT 10.8 tho/cmm (1.6-8.0); NEUTROPHIL-AUTOMATED 10.8 tho/cmm (1.6-8.0); NEUTROPHILS % 68.6 % (40-80); PLATELET COUNT 344 tho/cmm (150-450); RED BLOOD COUNT 4.15 mil/cmm (4.40-5.70); RED CELL DISTRIBUTION WIDTH 15.5 % (12.4-16.4); WHITE BLOOD COUNT 15.7 tho/cmm (4.0-10.0)
[2016-09-22 05:37] LABS: BASO % 0.4 % (0-2); BASO ABSOLUTE COUNT 0.1 tho/cmm (0.0-0.2); EOS % 2.3 % (0-7); EOSINOPHIL ABSOLUTE COUNT 0.3 tho/cmm (0.0-0.7); HCT-HEMATOCRIT 35.2 % (36.0-53.5); HGB-HEMOGLOBIN 11.6 gm/dl (13.5-17.0); IMMATURE GRANULOCYTES ABSOLUTE 0.44 tho/cmm (0-0.03); IMMATURE GRANULOCYTES PERCENT 3.7 % (0-0.3); LYMPH % 20.6 % (20-45); LYMPH ABSOLUTE COUNT 2.4 tho/cmm (0.8-4.5); MCH (MEAN CORPUSCULAR HGB) 29.1 pg (28.0-32.0); MCV (MEAN CELL VOLUME) 88.2 fl (82.0-96.0); MEAN PLATELET VOLUME 8.3 cmc (9.4-12.4); MONO % 6.4 % (0-12); MONOCYTE ABSOLUTE COUNT 0.8 tho/cmm (0.0-1.2); NEUTROPHIL ABSOLUTE COUNT 7.8 tho/cmm (1.6-8.0); NEUTROPHIL-AUTOMATED 7.8 tho/cmm (1.6-8.0); NEUTROPHILS % 66.6 % (40-80); PLATELET COUNT 375 tho/cmm (150-450); RED BLOOD COUNT 3.99 mil/cmm (4.40-5.70); RED CELL DISTRIBUTION WIDTH 15.6 % (12.4-16.4); WHITE BLOOD COUNT 11.8 tho/cmm (4.0-10.0)
[2016-09-22 05:56] LABS: ALB/GLOB RATIO 0.3 (0.8-2.0); ALBUMIN 1.9 g/dl (3.5-5.0); ALKALINE PHOSPHATASE 95 U/L (33-138); ALT/SGPT 29 U/L (12-78); ANION GAP 14 mmol/L (0-20); AST/SGOT 27 U/L (10-40); BILIRUBIN,TOTAL 0.2 mg/dl (0.0-1.5); BLOOD UREA NITROGEN 11 mg/dl (6-24); C-REACTIVE PROTEIN 10.6 mg/dl (0-0.9); CALCIUM 8.4 mg/dl (8.5-10.5); CARBON DIOXIDE-VENOUS 27 mmol/L (22-32); CHLORIDE 100 mmol/l (96-110); CREATININE 0.81 mg/dl (0.60-1.30); GLUCOSE 102 mg/dL (70-110); POTASSIUM 4.2 mmol/L (3.7-5.1); SODIUM 137 mmol/L (135-145); eGFR VALUE FOR BLACK >90 mL/Min
[2016-09-22 17:56] LABS: BODY FLUID TYPE THORACENTESIS
[2016-09-24 05:10] LABS: BASO % 0.5 % (0-2); EOS % 3.7 % (0-7); EOSINOPHIL ABSOLUTE COUNT 0.3 tho/cmm (0.0-0.7); HCT-HEMATOCRIT 34.7 % (36.0-53.5); HGB-HEMOGLOBIN 11.1 gm/dl (13.5-17.0); IMMATURE GRANULOCYTES ABSOLUTE 0.18 tho/cmm (0-0.03); IMMATURE GRANULOCYTES PERCENT 2.2 % (0-0.3); LYMPH % 27.5 % (20-45); LYMPH ABSOLUTE COUNT 2.2 tho/cmm (0.8-4.5); MCH (MEAN CORPUSCULAR HGB) 28.9 pg (28.0-32.0); MCV (MEAN CELL VOLUME) 90.4 fl (82.0-96.0); MEAN PLATELET VOLUME 8.2 cmc (9.4-12.4); MONO % 8.6 % (0-12); MONOCYTE ABSOLUTE COUNT 0.7 tho/cmm (0.0-1.2); NEUTROPHIL ABSOLUTE COUNT 4.6 tho/cmm (1.6-8.0); NEUTROPHIL-AUTOMATED 4.6 tho/cmm (1.6-8.0); NEUTROPHILS % 57.5 % (40-80); PLATELET COUNT 387 tho/cmm (150-450); RED BLOOD COUNT 3.84 mil/cmm (4.40-5.70); RED CELL DISTRIBUTION WIDTH 15.6 % (12.4-16.4); WHITE BLOOD COUNT 8.1 tho/cmm (4.0-10.0)
[2016-09-24] MEDS ORDERED: CEFTRIAXON1000 MG/VI IV (09:39)
[2016-09-24] MEDS ORDERED: IPRAT-ALBUT 0.5-3 ML AERO NEB (09:41)
[2016-09-24] MEDS ORDERED: ANORO ELLIPTA1 EAC1 INH (09:42)
[2016-09-24] MEDS ORDERED: NICOTINE PATCH1 EAC2 TD (09:43)
[2016-09-24] MEDS ORDERED: LOVENOX40 MG/0.1 SC (09:43)
[2016-09-24] MEDS ORDERED: TYLENOL325 M2 PO (09:47)
[2016-09-24] MEDS ORDERED: PERCOCET 5-3251 EACH PO (09:47)
[2016-09-24] MEDS ORDERED: SEROQUEL200 M2 PO (09:53)
[2016-09-24] MEDS ORDERED: CULTURELLE1 EAC1 PO (09:54)
[2016-09-24] MEDS ORDERED: BISCOLAX10 MG PR (09:55)
[2016-09-24] MEDS ORDERED: COLACE100 M1 PO (09:55)
[2016-09-24] MEDS ORDERED: MILK OF MAGNESIA PO (09:55)
[2016-09-24] MEDS ORDERED: MIRALAX17 G2 PO (09:59)
[2016-09-24] MEDS ORDERED: ONDANSETRON4 MG/2 M3 IV (10:00)
[2016-09-24] MEDS ORDERED: BENADRYL ALLERG25 M1 PO (10:12)
[2016-11-16] MEDS ORDERED: CYMBALTA60 M1 PO (11:00)
[2016-11-16] MEDS ORDERED: PROAIR HFA8.5 GM INH (11:06)
[2016-11-16] MEDS ORDERED: AMITRIPTYLINE H50 M1 PO (11:06)
[2016-11-16] MEDS ORDERED: OXYCONTIN10 M2 PO (11:06)
[2016-11-16] MEDS ORDERED: HYDROCODON-ACE1 EA16 PO (11:06)
[2016-11-16] MEDS ORDERED: ATIVAN1 M2 PO (11:07)
[2016-11-25] MEDS ORDERED: CEFTRIAXON2000 MG/VI IV (08:39)
[2016-11-25] MEDS ORDERED: ATIVAN2 MG/1 ML IV (08:47)
[2016-11-25] MEDS ORDERED: DULERA 200 MCG/13 G1 INH (08:48)
[2016-11-25] MEDS ORDERED: COMBIVENT RESPIM4 G1 INH (08:48)
[2016-11-25] MEDS ORDERED: ZANAFLEX4 M2 PO (08:48)
[2016-11-25] MEDS ORDERED: NICODERM CQ1 EAC2 TD (08:51)
[2016-11-25] MEDS ORDERED: OXYCONTIN10 M2 PO (08:52)
[2016-11-25] MEDS ORDERED: PERCOCET 5-3251 EACH PO (08:53)
[2016-11-25] MEDS ORDERED: TYLENOL325 M2 PO (08:54)
[2016-11-25] MEDS ORDERED: NEURONTIN400 M1 PO (08:55)
[2016-11-25] MEDS ORDERED: MUCINEX600 M1 PO (08:56)
[2016-11-25] MEDS ORDERED: SYNTHROID25 MC1 PO (08:59)
[2016-11-25] MEDS ORDERED: IRON325 M3 PO (09:02)
== END 2016-09-24 12:00 | disposition other institution (70) | DRG 856 ==
LOC: EDMED 17:31 → EMR2 21:00 → PCUA 23:09 → PACU 09-14 10:35 → CCU 09-14 12:33 → PCUA 09-16 21:23
PROVIDERS: Emergency Medicine; Internal Medicine Cardiovascular Disease; Internal Medicine Critical Care Medicine; Internal Medicine Infectious Disease; Registered Nurse; Surgery Vascular Surgery; ADMIT Family Medicine
PROC: 5A09357 Assistance with Respiratory Ventilation, Less than 24 Consecutive Hours, Continuous Positive Airway Pressure (ICD-10-PCS; 2016-09-12)
PROC: 02HV33Z Insertion of Infusion Device into Superior Vena Cava, Percutaneous Approach (ICD-10-PCS; 2016-09-13)
PROC: 0BDN0ZZ Extraction of Right Pleura, Open Approach (ICD-10-PCS; principal; 2016-09-14)
PROC: 0WB80ZZ Excision of Chest Wall, Open Approach (ICD-10-PCS; 2016-09-14)
DX: T81.4XXA Infection following a procedure, initial encounter (principal); A41.9 Sepsis, unspecified organism; J96.01 Acute respiratory failure with hypoxia; J86.9 Pyothorax without fistula; G92 Toxic encephalopathy; J18.9 Pneumonia, unspecified organism; E44.0 Moderate protein-calorie malnutrition; E87.2 Acidosis; E87.1 Hypo-osmolality and hyponatremia; L03.313 Cellulitis of chest wall; L02.213 Cutaneous abscess of chest wall; E03.9 Hypothyroidism, unspecified; Z87.891 Personal history of nicotine dependence; Z99.81 Dependence on supplemental oxygen; F90.9 Attention-deficit hyperactivity disorder, unspecified type; F41.9 Anxiety disorder, unspecified; N40.0 Benign prostatic hyperplasia without lower urinary tract symptoms; G47.33 Obstructive sleep apnea (adult) (pediatric); G47.00 Insomnia, unspecified; N52.9 Male erectile dysfunction, unspecified; Z86.14 Personal history of Methicillin resistant Staphylococcus aureus infection; Z96.642 Presence of left artificial hip joint; Z88.0 Allergy status to penicillin; Z88.2 Allergy status to sulfonamides; Z88.8 Allergy status to other drugs, medicaments and biological substances; F32.9 Major depressive disorder, single episode, unspecified; M19.90 Unspecified osteoarthritis, unspecified site; B95.5 Unspecified streptococcus as the cause of diseases classified elsewhere; E66.9 Obesity, unspecified; Z68.36 Body mass index [BMI] 36.0-36.9, adult; J44.9 Chronic obstructive pulmonary disease, unspecified; Y95 Nosocomial condition; R73.9 Hyperglycemia, unspecified; Z91.19 Patient's noncompliance with other medical treatment and regimen; D64.9 Anemia, unspecified; E88.09 Other disorders of plasma-protein metabolism, not elsewhere classified; F19.10 Other psychoactive substance abuse, uncomplicated
CPT/HCPCS: C1751; G0480; J0696; J1650; J1815; J1956; J2250; J2270; J2405; J3010; J3370; J7030; J7040; Q9967